=== PATIENT | female | born 1995 | race African-American/Black ===

== ENCOUNTER 2020-08-14 21:45 | Emergency (ER) | payer OTHER ==
[~2020-08-14] VITALS: Ht 152.4 cm; Wt 40.8 kg
[2020-08-14 22:23] LABS: PLATELET COUNT 220 K/uL (152-353)
[2020-08-14 22:26] LABS: POTASSIUM 3.6 mmol/L (3.6-5.2); SODIUM 133 mmol/L (136-145)
[2020-08-15 01:31] VITALS: BP 96/65; TEMP 98.4
== END 2020-08-15 01:31 | disposition home or self-care (01) ==
LOC: ED 22:04
PROVIDERS: Family Medicine
DX: R07.89 Other chest pain (principal); R06.4 Hyperventilation; M94.0 Chondrocostal junction syndrome [Tietze]; Z03.818 Encounter for observation for suspected exposure to other biological agents ruled out
CPT/HCPCS: 36415; 80053; 81000; 82550; 84484; 85027; 87635; 93005; 99283; U0003

== ENCOUNTER 2021-02-02 16:28 | Emergency (ER) | payer OTHER ==
[~2021-02-02] VITALS: Ht 152.4 cm; Wt 49.9 kg
[2021-02-02 19:10] VITALS: BP 96/59; TEMP 99.1
== END 2021-02-02 19:10 | disposition home or self-care (01) ==
LOC: ED 16:28
DX: U07.1 COVID-19 (principal); R05 Cough; R50.9 Fever, unspecified
CPT/HCPCS: 99283

== ENCOUNTER 2022-11-14 11:11 | Outpatient (CLI) | payer OTHER | END 2022-11-14 19:01 | disposition home or self-care (01) | LOC: CT 11:11 | PROVIDERS: ATTEND Nurse Practitioner Family | DX: G44.1 Vascular headache, not elsewhere classified (principal) ==